=== PATIENT | male | born 1980 | race African-American/Black ===

== ENCOUNTER 2019-04-27 15:47 | Emergency (ER) | payer OTHER ==
[~2019-04-27] VITALS: Ht 177.8 cm; Wt 90.7 kg
--- NOTE | 2019-04-27 16:12 | NUR ---
ED Nurse Note: PT Hopped in to ED for C/O pain to right ankle, unable to put weight on. pt stated he missed a step on stair and twisted his right ankle.
--- NOTE | 2019-04-27 16:34 | NUR ---
ED Nurse Note: pt taken to x ray
--- NOTE | 2019-04-27 16:50 | NUR ---
ED Nurse Note: Back from x ray
--- NOTE | 2019-04-27 17:24 | Emergency Room Report ---
History of Present Illness General Chief Complaint: Lower Extremity Injury Source: Patient Present Illness HPI 38-year-old male with no significant past medical history here complaining of right ankle and right knee pain after a fall at work today. 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 Denies any head injury, loss of consciousness, dizziness. Rates the pain right ankle 10 out of 10 without radiation. Denies tingling and numbness. Has not taken medication for symptom relief. Rates the pain right knee 3 out of 10 without radiation. Denies all other injuries. Denies chest pain, shortness of breath, palpitation, headache and dizziness. Allergies: Coded Allergies: No Known Allergies (Unverified , 04/27/19) Patient History Past Medical History: see triage record Past Surgical History: none Pertinent Family History: none Immunizations: UTD Reviewed Nursing Documentation: PMH: Agreed; PSxH: Agreed Nursing Documentation-PMH Past Medical History: No Stated History Review of Systems All Other Systems: negative except mentioned in HPI Physical Exam Vital Signs Date Time Temp Pulse Resp B/P (MAP) Pulse Ox O2 Delivery O2 Flow Rate FiO2 04/27/19 16:05 98.2 90 18 119/63 (81) 99 Room Air Sp02 EP Interpretation: reviewed, normal General Appearance: no apparent distress, alert, GCS 15, non-toxic Head: normocephalic, atraumatic Eyes: bilateral eye normal inspection, bilateral eye PERRL ENT: hearing grossly normal, normal pharynx, no angioedema, normal voice Neck: full range of motion, supple, no meningismus, supple/symm/no masses Respiratory: chest non-tender, lungs clear, normal breath sounds, no rhonchi, no retraction, no wheezing, speaking full sentences Cardiovascular #1: regular rate, rhythm, no edema, no murmur, normal capillary refill Cardiovascular #2: 2+ dorsalis pedis (R), 2+ dorsalis pedis (L) Gastrointestinal: normal bowel sounds, non tender, soft, non-distended, no guarding, no rebound Rectal: deferred Genitourinary: no CVA tenderness Musculoskeletal: back normal, decreased range of motion, inflammation - Right ankle and lateral malleolus, no calf tenderness, pelvis stable, non-tender Neurologic: alert, motor strength/tone normal, oriented x3, sensory intact, responsive, speech normal Psychiatric: judgement/insight normal, memory normal, mood/affect normal, no suicidal/homicidal ideation Skin: no rash Lymphatic: no adenopathy Medical Decision Making PA Attestation All my diagnosis and treatment plans were reviewed ad discussed with my supervising physician Dr. Villtaoro Diagnostic Impression: Primary Impression: Ankle sprain Additional Impression: Knee contusion ER Course 38-year-old male with no significant past medical history here complaining of right ankle and right knee pain after a fall at work today. 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 Denies any head injury, loss of consciousness, dizziness. Rates the pain right ankle 10 out of 10 without radiation. Denies tingling and numbness. Has not taken medication for symptom relief. Rates the pain right knee 3 out of 10 without radiation. Denies all other injuries. Denies chest pain, shortness of breath, palpitation, headache and dizziness. Ddx considered but are not limited to: ankle sprain, ankle strain, ankle fracture, ankle contusion, knee contusion versus sprain versus fracture Vital signs: are WNL, pt. is afebrile H&PE are most consistent with: Right ankle sprain, right knee contusion ORDERS: ankle x-ray, knee x-ray, Robaxin, ibuprofen ED INTERVENTIONS: Ankle Felix wrap DISCHARGE: At this time pt. is stable for d/c to home. Will provide printed patient care instructions, and any necessary prescriptions. Care plan and follow up instructions have been discussed with the patient prior to discharge. Patient to follow-up with visual merchandising specialist, take medication as directed, if worsening symptoms return to the emergency room, avoid strenuous physical activity, alternate between icing and heating affected area Other X-Ray Diagnostic Results Other X-Ray Diagnostic Results #1: X-Ray ordered: Right ankle # of Views/Limited Vs Complete: 3 View Indication: Pain EP Interpretation: Yes PA Xray: Interpretation reviewed, by supervising MD, and agrees with findings. Interpretation: no dislocation, no fractures Impression: No acute disease Electronically Signed by: Alice Oro PA-C Other X-Ray Diagnostic Results #2: X-Ray ordered: Right knee # of Views/Limited Vs Complete: 3 View Indication: Pain EP Interpretation: Yes JULIETA Xray: Interpretation reviewed, by supervising MD, and agrees with findings. Interpretation: no dislocation, no soft tissue swelling, no fractures Impression: No acute disease Electronically Signed by: Alice Oro PA-C Last Vital Signs Date Time Temp Pulse Resp B/P (MAP) Pulse Ox O2 Delivery O2 Flow Rate FiO2 04/27/19 16:05 98.2 90 18 119/63 (81) 99 Room Air Disposition: HOME, SELF-CARE Condition: Stable Scripts Ibuprofen* (MOTRIN*) 600 Mg Tablet 600 MG ORAL Q8H PRN for For Pain, #30 TAB 0 Refills Prov: Alice Branch 04/27/19 Methocarbamol* (ROBAXIN-500*) 500 Mg Tablet 500 MG ORAL TID PRN for For Pain, #15 TAB 0 Refills Prov: Alice Branch 04/27/19 Patient Instructions: Ankle Sprain, Contusion, [id number] Additional Instructions: Take medication as directed, follow-up with your primary care provider, avoid strenuous physical activity, if worsening symptoms return to the emergency room he also need to be followed by visual merchandising specialist per request of your primary care provider. Alice Branch Apr 27, 2019 17:24
[2019-04-27] MEDS ORDERED: ROBAXIN-500MG ORAL (17:25)
[2019-04-27] MEDS ORDERED: IBUPROFEN600 MG ORAL (17:25)
--- NOTE | 2019-04-27 17:46 | NUR ---
ED Nurse Note: DARON wrap and crutches given PT. crutch teaching provided. pt verbalizes understanding
[2019-04-27 17:47] VITALS: BP 128/70
--- NOTE | 2019-04-28 10:29 | Diagnostic Imaging Report ---
Indication: Knee trauma Technique: 3 views of the right knee Comparison: None Findings: No acute fractures. No dislocations. The joint spaces are preserved. No suprapatellar effusion Impression: Negative
--- NOTE | 2019-04-28 10:51 | Diagnostic Imaging Report ---
Indication: Trauma, pain Technique: 3 views of the right ankle Comparison: none Findings: No acute fractures. No dislocations. Joint spaces are preserved. Normal mineralization. No radiopaque foreign body. Impression: Negative
== END 2019-04-27 17:47 | disposition home or self-care (01) ==
LOC: EMR 16:00
DX: S93.401A Sprain of unspecified ligament of right ankle, initial encounter (principal); S80.01XA Contusion of right knee, initial encounter; W17.89XA Other fall from one level to another, initial encounter; Y93.89 Activity, other specified; Y92.9 Unspecified place or not applicable
CPT/HCPCS: 99284

== ENCOUNTER 2019-05-05 11:26 | Emergency (ER) | payer OTHER ==
[~2019-05-05] VITALS: Ht 177.8 cm; Wt 90.7 kg
[~2019-05-05 11:26] MED LIST: IBUPROFEN600 MG ORAL; ROBAXIN-500MG ORAL
--- NOTE | 2019-05-05 11:49 | NUR ---
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 PT DENIES HEAD TRAUMA, PT WANTS TO FOLLOW UP ON HEALING STATUS OF ANKLE.
--- NOTE | 2019-05-05 12:11 | Emergency Room Report ---
History of Present Illness General Chief Complaint: Lower Extremity Injury Source: Patient Present Illness HPI 38-year-old male presents to the emergency department with continued 6 out of 10 severity pain to the right ankle after being diagnosed with ankle sprain days ago. Patient reports he has not followed up with a primary care or orthopedic provider. Patient reports that his injury was due to Worker's Comp. and his human resources employee directed him to return to the emergency department for follow-up. Patient denies additional trauma or fall. Patient denies skin color changes to the extremity or pain out of proportion/increased pain since initial injury. Patient reports his pain has decreased however he still continues to have pain in the right ankle. Denies numbness tingling or loss of sensation or gross motor movements of the extremities, incontinence of bowel or bladder. Denies CP, Palpitations, LOC, AMS, dizziness, Changes in Vision, weakness or a sudden severe headache. Allergies: Coded Allergies: No Known Allergies (Unverified , 04/27/19) Patient History Past Medical History: see triage record Past Surgical History: none Pertinent Family History: none Reviewed Nursing Documentation: PMH: Agreed; PSxH: Agreed Nursing Documentation-PMH Past Medical History: No Stated History Review of Systems All Other Systems: negative except mentioned in HPI Physical Exam Vital Signs Date Time Temp Pulse Resp B/P (MAP) Pulse Ox O2 Delivery O2 Flow Rate FiO2 05/05/19 11:44 97.3 71 16 128/76 (93) 98 Room Air Sp02 EP Interpretation: reviewed, normal General Appearance: no apparent distress, alert, GCS 15, non-toxic Head: normocephalic, atraumatic Eyes: bilateral eye normal inspection, bilateral eye PERRL ENT: hearing grossly normal, normal voice Neck: full range of motion Respiratory: lungs clear, normal breath sounds, speaking full sentences Cardiovascular #1: regular rate, rhythm, normal capillary refill Cardiovascular #2: 2+ dorsalis pedis (R) Musculoskeletal: normal range of motion, gait/station normal, tender - right ankle ttp, other Neurologic: alert, motor strength/tone normal, oriented x3, sensory intact, responsive, speech normal Psychiatric: judgement/insight normal Lymphatic: no adenopathy Medical Decision Making PA Attestation Dr. Chavez Is my supervising Physician whom patient management has been discussed with. Diagnostic Impression: Primary Impression: Ankle sprain Qualified Codes: S93.401D - Sprain of unspecified ligament of right ankle, subsequent encounter ER Course 38-year-old male presents to the emergency department with continued 6 out of 10 severity pain to the right ankle after being diagnosed with ankle sprain days ago. Patient reports he has not followed up with a primary care or orthopedic provider. Patient reports that his injury was due to Worker's Comp. and his human resources employee directed him to return to the emergency department for follow-up. Patient denies additional trauma or fall. Patient denies skin color changes to the extremity or pain out of proportion/increased pain since initial injury. Patient reports his pain has decreased however he still continues to have pain in the right ankle. Denies numbness tingling or loss of sensation or gross motor movements of the extremities, incontinence of bowel or bladder. Denies CP, Palpitations, LOC, AMS, dizziness, Changes in Vision, weakness or a sudden severe headache. Ddx considered but are not limited to Fracture, dislocation, contusion, Sprain/ Strain/Spasm, Epidural abscess, Neoplastic mets. Vital signs: are WNL, pt. is afebrile H&PE are most consistent with musculoskeletal injury will perform imaging to r/ o fractures/dislocations. ORDERS: - X-ray's not required as patient has already been imaged here in the emergency department 1 week ago no fracture was identified. There is no emergent basis for additional imaging at this time. ED INTERVENTIONS: new Felix wrap applied to the right ankle by reliability technician. Pt. remains neurovascularly intact. --I do not identify an emergent condition at this time. With current presentation, pt. is stable for close outpatient follow up and conservative treatment. D/w pt. to return promptly to ED with worsening or new symptoms.- Pt. verbalizes' understanding and agreement with proposed treatment plan. DISCHARGE: At this time pt. is stable for d/c to home. Will provide printed patient care instructions, and any necessary prescriptions. Care plan and follow up instructions have been discussed with the patient prior to discharge. Last Vital Signs Date Time Temp Pulse Resp B/P (MAP) Pulse Ox O2 Delivery O2 Flow Rate FiO2 05/05/19 11:44 97.3 71 16 128/76 (93) 98 Room Air Disposition: HOME, SELF-CARE Condition: Stable Scripts Acetaminophen* (TYLENOL EXTRA STRENGTH*) 500 Mg Tablet 500 MG ORAL Q6H, #20 TAB 0 Refills Prov: Lorri Lindo 05/05/19 Referrals: Orthopedic Urgent Care Patient Instructions: Ankle Sprain Additional Instructions: ~ ~ An emergent medical condition has not been identified based on this patients presentation, exam and results from initial emergent imaging performed on 04/27/19. The patient is determined to be stable for outpatient follow-up and management of symptoms by a primary care provider. As this is a Worker's Compensation injury the Worker's Compensation insurance and benefits clerk shall direct patient to appropriate benefits specialist recruiter and/or primary care provider. The insurance and benefits clerk information can be obtained by the human resources department at his place of employment. Again, an emergent condition is not identified at this time, and no further emergency management or interventions are necessary at this time. Continue to take previously prescribed medications as directed. Follow up with an CREATIVE SERVICES DIRECTOR or PRIMARY CARE PROVIDER within 3-5 days, even if your symptoms have resolved. If symptoms persist MRI may be required at the discretion of your PCP or Ortho Specialist. --Please review attached Orthopedic Referral Clinic, if you or your worker's compensation adjustor do not already have a primary care provider or an appropriate Orthopedic referral. - Please note that this Emergency Department Report was dictated using [employer] paint technology software, occasionally this can lead to erroneous entry secondary to interpretation by the dictation equipment. Lorri Lindo May 05, 2019 12:11
[2019-05-05] MEDS ORDERED: TYLENOL EXTRA500 MG ORAL (12:12)
[2019-05-05 12:32] VITALS: BP 121/79
--- NOTE | 2019-05-05 12:32 | NUR ---
ER DISCHARGE NOTE: Patient is cleared to be discharged per ERMD, pt is aox4, on room air, with stable vital signs. pt was given dc and prescription instructions, pt was able to verbalize understanding, pt id band. pt is able to ambulate with steady gait. pt took all belongings.
== END 2019-05-05 12:33 | disposition home or self-care (01) ==
LOC: EMR 12:33
DX: S93.401D Sprain of unspecified ligament of right ankle, subsequent encounter (principal); X58.XXXD Exposure to other specified factors, subsequent encounter
CPT/HCPCS: 99282